=== PATIENT | female | born 1970 | race Caucasian/White ===

== ENCOUNTER 2017-11-08 12:31 | Emergency (ER) | END 2017-11-08 15:39 | disposition home or self-care (01) ==

== ENCOUNTER 2018-10-15 16:59 | Emergency (ER) | END 2018-10-15 20:50 | disposition home or self-care (01) ==

== ENCOUNTER 2019-01-03 18:57 | Emergency (ER) | payer MEDICAID ==
[~2019-01-03] VITALS: Ht 162.6 cm; Wt 77.2 kg
[~2019-01-03 18:57] MED LIST: NAPR-985 PO; TRAM50TA2 PO
[2019-01-03 19:13] VITALS: Ht 162.6 cm; Wt 77.2 kg
--- NOTE | 2019-01-03 20:48 | ERD ---
ER Documentation Chief Complaint Chief Complaint Bilateral ear pain X 2 wks, bilateral hand pain X 5 months HPI This is a 48-year-old female presents ED with complaints of ear fullness times 2 weeks. Patient denies any ear pain, fever, chills, sore throat, chest pain, shortness of breath, trouble breathing, cough, congestion, nausea, vomiting, diarrhea, constipation, abdominal pain. Patient also has a history of carpal tunnel syndrome of bilateral wrists and is requesting a refill of tramadol and ibuprofen as she is not seeing her specialist for 2 weeks. ROS All systems reviewed and are negative except as per history of present illness. Medications Home Meds Active Scripts Tramadol HCl (Tramadol HCl) 50 Mg Tablet, 50 MG PO Q4 PRN for PAIN, #12 TAB Prov:RUTH SMALLWOOD PA-C 01/03/19 Naproxen* (Naprosyn*) 500 Mg Tablet, 500 MG PO BID PRN for PAIN AND/OR INFLAMMATION, #30 TAB Prov:RUTH SMALLWOOD PA-C 01/03/19 Naproxen* (Naprosyn*) 500 Mg Tablet, 500 MG PO BID PRN for PAIN AND/OR INFLAMMATION, #30 TAB Prov:GIORGI LOCKHARTC 10/15/18 Naproxen* (Naprosyn*) 500 Mg Tablet, 500 MG PO BID PRN for PAIN AND/OR INFLAMMATION, #30 TAB Prov:GIORGI LOCKHARTC 10/15/18 Tramadol HCl (Tramadol HCl) 50 Mg Tablet, 50 MG PO Q6 PRN for PAIN, #12 TAB Prov:GIORGI LOCKHARTC 10/15/18 Tramadol HCl (Tramadol HCl) 50 Mg Tablet, 50 MG PO Q6, #20 TAB Prov:GIBSON AGUILA PA-C 11/08/17 Allergies Allergies: Coded Allergies: No Known Allergy (Unverified , 08/03/14) PMhx/Soc History of Surgery: Yes (C SECTION X2) Anesthesia Reaction: No Hx Neurological Disorder: No Hx Respiratory Disorders: No Hx Cardiac Disorders: Yes (HTN) Hx Psychiatric Problems: No Hx Miscellaneous Medical Probl: No Hx Alcohol Use: Yes (OCCASSIONAL) Hx Substance Use: No Hx Tobacco Use: Yes (1CIG/DAY) FmHx Family History: No diabetes Physical Exam Vitals Vital Signs Date Temp Pulse Resp B/P (MAP) Pulse Ox O2 O2 Flow FiO2 Time Delivery Rate 01/03/19 98.2 80 18 155/73 99 19:13 (100) Physical Exam Const: No acute distress Head: Atraumatic Eyes: Normal Conjunctiva ENT: Normal External Ears, Nose and Mouth. Bilateral ear canals remarkable for cerumen impaction, unable to visualize tympanic membrane due to cerumen imp action bilaterally Neck: Full range of motion. No meningismus. Resp: Clear to auscultation bilaterally Cardio: Regular rate and rhythm, no murmurs Ext: No cyanosis, or edema Neur: Awake and alert Psych: Normal Mood and Affect Procedures/MDM PROCEDURES: Bilateral ear irrigation was performed to remove cerumen impaction ER COURSE: The patient was stable throughout ED course. I kept the patient and/or family informed of laboratory and diagnostic imaging results throughout the emergency room course. The patient was promptly evaluated and a treatment plan was devised based on H&P and other data. This plan was discussed with the patient who agreed and had no further questions or concerns prior to discharge. MEDICAL DECISION MAKIN-year-old female presents ED with bilateral cerumen impaction. Irrigation was performed in the ED to remove cerumen impaction. Patient reports feeling much better after having this procedure performed. At this time there is no ENT emergency. No evidence of mastoiditis, retropharyngeal abscess, peritonsillar abscess, sepsis, meningitis, Andre's, epiglottitis, among others. As for patient's chronic wrist pain patient is requesting refill of her tramadol. Will refill 12 pills of her tramadol and advised her to follow-up with her primary care to have further refill of tramadol. Vitals are stable patient can be manag ed close outpatient follow-up advised patient follow-up with primary in the next 48 hours. Return to ED with any worsening symptoms DISPOSITION PLAN: We discussed follow up with the patient's primary care doctor within 24 to 48 hours. Patient counseled regarding my diagnostic impression and care plan. Prior to discharge all questions answered. Pt agrees with treatment plan and understands strict return precautions. Precautionary instructions provided including instructions to return to the ER if not improving or for any worsening or changing symptoms or concerns. SPECIALIST FOLLOW UP RECOMMENDED: None Patient has been advised to follow up with primary care in 1-2 days. Disclaimer: Inadvertent spelling and grammatical errors are likely due to EHR/dictation software use and do not reflect on the overall quality of patient care. Also, please note that the electronic time recorded on this note does not necessarily reflect the actual time of the patient encounter. Blood Pressure Assessment: Patient's blood pressure was elevated (>120/80) but appears stable without evidence of hypertension emergency or urgency. The patient was counseled about the risks of hypertension and urged to pursue outpatient monitoring and therapy within a week with their primary care physician. Departure Diagnosis: Primary Impression: Cerumen impaction Laterality: bilateral Qualified Codes: H61.23 - Impacted cerumen, bilateral Additional Impression: Wrist pain, chronic Laterality: unspecified laterality Qualified Codes: M25.539 - Pain in unspecified wrist; G89.29 - Other chronic pain Condition: Stable Patient Instructions: Cerumen Impaction, Home Care, What Is Carpal Tunnel Syndrome (CTS)? [facility] Additional Instructions: Paciente aconseja volver a Departamento de urgencias inmediatamente para sntomas nuevos o que empeoran . Paciente aconseja posteriores con el PCP en 1-2 [place] . Paciente verbaliza la comprehensin y est de acuerdo con el tratamiento y el curso de accin. Si el paciente no tiene ninguna de atencin primaria pueden seguir con [facility] [id number] [place] [address] o [facility] + [address] [address] RUTH SMALLWOOD PA-C Jan 03, 2019 20:48
[2019-01-03] MEDS ORDERED: TRAM50TA2 PO (20:49)
[2019-01-03] MEDS ORDERED: NAPR-985 PO (20:49)
[2019-01-03 21:32] VITALS: BP 140/70; PULSE 75; RESP 15
== END 2019-01-03 21:32 | disposition home or self-care (01) ==
LOC: FTE 18:57
DX: H61.23 Impacted cerumen, bilateral (principal); M25.539 Pain in unspecified wrist; I10 Essential (primary) hypertension; Z87.891 Personal history of nicotine dependence
CPT/HCPCS: 69209; Z7502